=== PATIENT | female | born 1975 | race African-American/Black ===

== ENCOUNTER 2021-07-05 10:42 | Outpatient (CLI) | payer OTHER, SELFPAY ==
--- NOTE | 2021-07-05 11:30 | NEURO_ITS ---
Impression: # Complains of right lower extremity tingling. # Normal nerve conduction study. # No Tarsal Tunnel Syndrome. # Normal needle/EMG exam. # Clinical correlation recommended; Could be related to small fiber neuropathy. # Higher involvement cannot be ruled out. Nerve Conduction Studies Anti Sensory Summary Table Stim Site NR Peak (ms) P-T Amp (?V) Site1 Site2 Delta-P (ms) Dist (cm) Barber (m/s) Right Sup Fibular Anti Sensory (Ant Lat Mall) 14 cm 3.6 9.9 14 cm Ant Lat Mall 3.6 16.0 44 Right Sural Anti Sensory (Lat Mall) Calf 3.5 12.2 Calf Lat Mall 3.5 16.0 46 Motor Summary Table Stim Site NR Onset (ms) O-P Amp (mV) Site1 Site2 Delta-0 (ms) Dist (cm) Barber (m/s) Right Lateral Plantar Motor (ADM) Med Mall 5.0 1.2 Right Peroneal Motor (Vastus Med) Ankle 4.9 3.3 Popit Ankle 10.8 43.0 40 Popit 15.7 2.4 Right Tibial Motor (Abd Bullock Brev) Ankle 5.2 2.2 Knee Ankle 10.3 45.0 44 Knee 15.5 3.2 F Wave Studies NR F-Lat (ms) L-R F-Lat (ms) Right Peroneal (Mrkrs) (EDB) 55.94 Right Tibial (Mrkrs) (Abd Hallucis) 56.37 EMG Side Muscle Nerve Root Ins Act Fibs Amp Dur Recrt Comment Right AntTibialis Dp Br Fibular L4-5 Nml Nml Nml Nml Nml Right Gastroc Tibial S1-2 Nml Nml Nml Nml Nml Right Fibularis Long Sup Br Fibular L5-S1 Nml Nml Nml Nml Nml Right Flex Dig Long Tibial L5-S2 Nml Nml Nml Nml Nml Right Ext Dig Brev Dp Br Fibular L5, S1 Nml Nml Nml Nml Nml MTDD
== END 2021-07-05 10:43 | disposition home or self-care (01) ==
PROVIDERS: PCP Nurse Practitioner Family; Visit Provider Nurse Practitioner Family
DX: E11.40 Type 2 diabetes mellitus with diabetic neuropathy, unspecified (principal)
CPT/HCPCS: 95886; 95909; 95911